=== PATIENT | female | born 1970 ===

== ENCOUNTER 2017-09-29 06:07 | Inpatient (IN) | payer OTHER, SELFPAY ==
[2017-09-26 09:51] VITALS: BMI 21.4
[2017-09-29] MEDS ORDERED: Propofol 10 mg/ml Inj (20 ML) ONE (07:15)
[2017-09-29] MEDS ORDERED: Succinylcholine 200 mg/10 ml Inj IV ONE (07:15)
[2017-09-29] MEDS ORDERED: Lidocaine 4% (Laryng-O-Jet) Kit MM ONE (07:15)
[2017-09-29] MEDS ORDERED: Rocuronium 10 mg/ml (5 ml) ONE (07:15)
[2017-09-29] MEDS ORDERED: Midazolam 2 MG/2 ML VIAL ONE (07:15)
[2017-09-29] MEDS ORDERED: ePHEDrine 50 mg/ml Inj ONE (07:15)
[2017-09-29] MEDS ORDERED: Lactated Ringer's 1,000 ML IV ONE ×2 (07:20→09:16)
[2017-09-29] MEDS ORDERED: ceFAZolin IV 1 gm in Dextrose 1 GM/50 ML BAG IVPB ONE (07:51)
--- NOTE | 2017-09-29 07:54 | CP.SDSHP ---
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 No Pain - Allergies Allergies: Allergies No Known Allergies Allergy (Verified 09/29/17 07:47) - Physical Exam General Appearance: well, non-toxic Vital Signs: Vital Signs 09/29/17 07:00 Temperature 97.2 F L Pulse Rate 71 Respiratory 18 Rate Blood Pressure 112/75 O2 Sat by Pulse 100 Oximetry Neuro: WNL Heart: WNL Lungs: WNL GI: WNL - {Optional Preform as Required} Breast: WNL Abdomen: WNL - Impression Impression: 47 y/o F w/ low-grade Right breast DCIS Pt. Evaluated Today:Candidate for Anesthesia & Procedure: Yes - Date & Time Date: 09/29/17 Time: 07:56 Short Stay Discharge - Short Stay Discharge Admitting Diagnosis/Reason for Visit: D05.11 Disposition: HOME/ ROUTINE Referrals: FAMILY PROVIDER,NO [Primary Care Provider] -
[2017-09-29] MEDS ORDERED: Dexamethasone 4 mg/1 ml ONE (08:15)
[2017-09-29 08:40] LABS: BASO % 1.1 % (0.0-2.0); EOS % 1.1 % (0.0-4.0); HEMATOCRIT 39.1 % (34.0-47.0); LYMPH % 26.5 % (20.0-40.0); MEAN CELL VOLUME 88.7 fl (81.0-99.0); MEAN CORPUSCULAR HEMOGLOBIN 29.5 pg (27.0-31.0); MEAN CORPUSCULAR HGB CONC 33.3 g/dL (33.0-37.0); MEAN PLATELET VOLUME 8.7 fl (7.2-11.7); MONO # 0.2 K/uL (0.0-0.8); MONO % 6.3 % (0.0-10.0); NEUT # 2.5 K/uL (1.8-7.0); NRBC % 0.3 % (0.0-0.0); RED CELL DISTRIBUTION WIDTH 15.2 % (11.5-14.5); WHITE BLOOD COUNT 3.9 K/uL (4.8-10.8)
[2017-09-29] MEDS ORDERED: HYDROmorphone 0.5 mg/0.5 ml ISec IVP PRN (09:35)
[2017-09-29] MEDS ORDERED: HYDROmorphone 0.5 mg/0.5 ml ISec ONE (09:40)
[2017-09-29] MEDS ORDERED: Lactated Ringer's 1,000 ML IV SCH (09:45)
--- NOTE | 2017-09-29 09:49 | PCM.SURG1 ---
<Stas Kauffman A - Last Filed: 09/29/17 09:47> Surgeon's Initial Post Op Note - Surgeon's Notes Surgeon: Dr Barbosa Income Tax Expert: Dr Kauffman PGY3, Dr Lacy PGY2 Type of Anesthesia: General Endo Pre-Operative Diagnosis: Ductal Carcinoma in Situ: Right breast Operative Findings: see report <Cristobal Barbosa - Last Filed: 09/30/17 15:12> Surgeon's Initial Post Op Note - Surgeon's Notes Post-Operative Diagnosis: Extensive DCIS R breast Operation Performed: Right simple mastectomy Specimen/Specimens Removed: Right breast. Suture marking lateral side Estimated Blood Loss: EBL {In ML}: 100 Blood Products Given: N/A Drains Used: Miguel A Post-Op Condition: Good Date of Surgery/Procedure: 09/29/17 Time of Surgery/Procedure: 09:00
[2017-09-29] MEDS ORDERED: Oxycodone/Acetaminophen 5/325 mg Tab PO PRN (10:33)
[2017-09-29] MEDS: Sodium Chloride 0.9% 1,000 ML IV SCH (14:20)
[2017-09-30] MEDS: Sodium Chloride 0.9% 1,000 ML IV SCH (01:50)
[2017-09-30 05:47] VITALS: O2SAT 99
[2017-09-30 06:45] LABS: HEMATOCRIT 23.9 % (34.0-47.0); MEAN CELL VOLUME 87.9 fl (81.0-99.0); MEAN CORPUSCULAR HEMOGLOBIN 29.5 pg (27.0-31.0); MEAN CORPUSCULAR HGB CONC 33.6 g/dL (33.0-37.0); RED CELL DISTRIBUTION WIDTH 15.6 % (11.5-14.5); WHITE BLOOD COUNT 5.2 K/uL (4.8-10.8)
[2017-09-30 08:59] VITALS: BP 90/53; PULSE 88; RESP 18; TEMP 99.3
--- NOTE | 2017-09-30 09:35 | CP.PCM.DIS ---
Provider - Provider Date of Admission: 09/29/17 10:29 Attending physician: Cristobal Barbosa MD Primary care physician: NO FAMILY PROVIDER Time Spent in preparation of Discharge (in minutes): 25 Diagnosis - Discharge Diagnosis (1) Ductal carcinoma in situ (DCIS) of right breast Status: Acute (2) S/P mastectomy Status: Acute Hospital Course - Lab Results Lab Results: Most Recent Lab Values WBC 5.2 K/uL (4.8-10.8) 09/30/17 05:30 RBC 2.71 Mil/uL (3.80-5.20) L 09/30/17 05:30 Hgb 8.0 g/dL (12.0-16.0) L D 09/30/17 05:30 Hct 23.9 % (34.0-47.0) L 09/30/17 05:30 MCV 87.9 fl (81.0-99.0) 09/30/17 05:30 MCH 29.5 pg (27.0-31.0) 09/30/17 05:30 MCHC 33.6 g/dL (33.0-37.0) 09/30/17 05:30 RDW 15.6 % (11.5-14.5) H 09/30/17 05:30 Plt Count 152 K/uL (130-400) 09/30/17 05:30 MPV 8.7 fl (7.2-11.7) 09/29/17 08:00 Neut % (Auto) 65.0 % (50.0-75.0) 09/29/17 08:00 Lymph % (Auto) 26.5 % (20.0-40.0) 09/29/17 08:00 Gem % (Auto) 6.3 % (0.0-10.0) 09/29/17 08:00 Eos % (Auto) 1.1 % (0.0-4.0) 09/29/17 08:00 Baso % (Auto) 1.1 % (0.0-2.0) 09/29/17 08:00 Neut # 2.5 K/uL (1.8-7.0) 09/29/17 08:00 Lymph # 1.0 K/uL (1.0-4.3) 09/29/17 08:00 Gem # 0.2 K/uL (0.0-0.8) 09/29/17 08:00 Eos # 0.0 K/uL (0.0-0.7) 09/29/17 08:00 Baso # 0.0 K/uL (0.0-0.2) 09/29/17 08:00 - Hospital Course Hospital Course: 47 y/o F Dx w/ low-grade DCIS of Right breast presents to [facility] for elective right mastectomy. Drain was placed to monitor bleeding. Pt tolerated the procedure well w/ no complications. Pt was kept overnight for observation and pain control. Pt had This AM, pt tolerating regular diet. pain well controlled w / PO medications. Drain had ~120cc output since placement. Pt denies F/C, N/V, D /C. no numbness/tingling in arm. Pt is cleared for discharge to home with instructions to follow up in clinic on for drain removal. Discharge Exam - Head Exam Head Exam: NORMAL INSPECTION - Eye Exam Eye Exam: Normal appearance - ENT Exam ENT Exam: Mucous Membranes Moist - Respiratory Exam Respiratory Exam: NORMAL BREATHING PATTERN. absent: Accessory Muscle Use, Respiratory Distress Additional comments: minor staining on bandages no ecchymosis appreciated. drain w/ serosanguinous output - Cardiovascular Exam Cardiovascular Exam: absent: Bradycardia, Tachycardia - GI/Abdominal Exam GI & Abdominal Exam: Soft. absent: Distended, Tenderness - Extremities Exam Extremities exam: normal inspection - Neurological Exam Neurological exam: Alert, Oriented x3 - Psychiatric Exam Psychiatric exam: Normal Affect, Normal Mood - Skin Skin Exam: Dry, Normal Color, Warm Discharge Plan - Discharge Medications Prescriptions: oxyCODONE/Acetaminophen [Percocet 5/325 mg Tab] 1 tab PO Q4 PRN #10 tab PRN Reason: Pain, Moderate (4-7) - Follow Up Plan Condition: GOOD Disposition: HOME/ ROUTINE Instructions: How to Use an Incentive Spirometer (DC), Mastectomy (DC), Surgical Site Infections (DC) Additional Instructions: See Dr. Barbosa in clinic on empty drain as needed take medication as prescribed pt may take over the counter pain medication Referrals: FAMILY PROVIDER,NO [Primary Care Provider] - Cristobal Barbosa MD [Staff Provider] -
--- NOTE | 2017-10-01 08:40 | OP ---
PROCEDURE DATE: 09/29/2017 SURGEON: Cristobal Barbosa MD. ASSISTANTS: Dr. Kauffman and Dr. Lacy. TYPE OF ANESTHESIA: General. ANESTHESIA ADMINISTERED BY: Jodie Sol MD. PREOPERATIVE DIAGNOSIS: Extensive ductal carcinoma in situ, right breast. POSTOPERATIVE DIAGNOSIS: Extensive ductal carcinoma in situ, right breast. PROCEDURE: Right simple mastectomy. DESCRIPTION OF OPERATION: With the patient in the supine position under adequate general anesthesia, the right chest and upper arm were prepped and draped in usual sterile manner. An elliptical incision was marked encompassing the nipple areolar complex of the right breast and the upper skin incision was made, taken down through the full thickness of skin. Skin flap was raised superiorly up to the chest wall at approximately the level of the third rib, which was the limit of breast tissue and this was done using a combination of sharp dissection and cautery. Similarly, the lower incision was made and again, the skin flap raised down to the chest wall beyond the limit of the breast tissue. The patient was relatively thin and there was minimal subcutaneous fat and the breast tissue was dissected off the skin using a combination of sharp dissection and cautery. The breast tissue was then dissected off the underlying chest wall using primarily cautery, beginning at the lower outer aspect over the serratus musculature and then continuing on to the pectoralis fascia. There did not appear to be any adherence of the breast tissue to the chest wall and no gross tumor mass was identified. The breast tissue with the overlying ellipse of skin was then marked with a single suture on the lateral end of the skin ellipse and sent for pathologic examination. The operative site was examined for hemostasis. Small bleeders were cauterized or suture ligated with 3-0 Vicryl and closure was performed with 3-0 Vicryl interrupted sutures for the subcutaneous tissue and then 4-0 Monocryl subcuticular sutures for closure, followed by Steri-Strips. The operative area was irrigated with sterile water and a 19 Miguel A drain placed prior to closure and brought out through the lower skin flap. The dry sterile dressing with fluffy compression was applied. The patient tolerated the procedure well and transferred to recovery room in stable condition. Estimated blood loss for the procedure 100 mL. Cristobal Barbosa MD
== END 2017-09-30 13:00 | disposition home or self-care (01) | DRG 258 ==
LOC: H.OPSURG 06:07 → H.MEDSURG1 10:29 → H.PEDS 15:16
PROVIDERS: ADMIT Specialist; ATTEND Specialist
PROC: 0HTT0ZZ Resection of Right Breast, Open Approach (ICD-10-PCS; principal; 2017-09-29 07:45)
DX: D05.11 Intraductal carcinoma in situ of right breast (principal)

== ENCOUNTER 2017-10-08 13:34 | Emergency (ER) | payer SELFPAY ==
[2017-10-08 13:34] VITALS: BMI 21.4
[2017-10-08 13:41] VITALS: BP 119/42; PULSE 77; RESP 18; TEMP 97.6; O2SAT 99
--- NOTE | 2017-10-08 15:25 | RAD ---
PROCEDURE: CHEST RADIOGRAPH, 1 VIEW HISTORY: s/p needle drainage of mastectomy hematoma COMPARISON: None available. FINDINGS: LUNGS: Clear. PLEURA: No pneumothorax or pleural fluid seen. CARDIOVASCULAR: Normal. OSSEOUS STRUCTURES: No significant abnormalities. VISUALIZED UPPER ABDOMEN: Normal. OTHER FINDINGS: The asymmetry in the breast shadows is consistent with right mastectomy status. The lateral right hemithoracic soft tissue changes are consistent with this postop status. -with or without mastectomy hematoma as history so states IMPRESSION: Postop changes. No cardiopulmonary pathology noted
--- NOTE | 2017-10-08 16:11 | ED PDOC ---
HPI: Wound Care - HPI Time Seen by Provider: 10/08/17 13:44 Chief Complaint (Nursing): Breast Problem Chief Complaint (Provider): Wound Check History Per: Patient Exam Limitations: no limitations Onset/Duration Of Symptoms: Days (x8days) Current Symptoms Are (Timing): Still Present Additional Complaint(s): 47 y/o female presents to the ED complaining of bleeding from the wound status post right mastectomy (surgery was performed by Dr. Barbosa last week). Denies cough, fever, redness or wound drainage. PMD: Cristobal Barbosa MD Past Medical History Reviewed: Historical Data, Nursing Documentation, Vital Signs Vital Signs: Last Vital Signs Temp 97.6 F 10/08/17 13:37 Pulse 77 10/08/17 13:37 Resp 18 10/08/17 13:37 BP 119/42 L 10/08/17 13:37 Pulse Ox 99 10/08/17 13:37 - Medical History PMH: Denies: Chronic Kidney Disease - Surgical History Other surgeries: Masectomy - Family History Family History: States: Unknown Family Hx - Social History Current smoker - smoking cessation education provided: No Alcohol: None Drugs: Denies - Home Medications Home Medications: Ambulatory Orders Medication Instructions Recorded Multivitamin [Multiple Vitamins] 1 tab PO DAILY 09/26/17 oxyCODONE/Acetaminophen [Percocet 1 tab PO Q4 PRN #10 tab 09/30/17 5/325 mg Tab] Cephalexin [cephalexin] 500 mg PO BID #14 cap 10/08/17 - Allergies Allergies/Adverse Reactions: Allergies Allergy/AdvReac Type Severity Reaction Status Date / Time No Known Allergies Allergy Verified 10/08/17 13:36 Review of Systems ROS Statement: Except As Marked, All Systems Reviewed And Found Negative (As per HPI, otherwise negative) Constitutional: Negative for: Fever Respiratory: Negative for: Cough Skin: Positive for: Other (Bleeding from the surgical site but no redness or wound drainage) Physical Exam - Reviewed Nursing Documentation Reviewed: Yes Vital Signs Reviewed: Yes - Physical Exam Appears: Positive for: Non-toxic, No Acute Distress Head Exam: Positive for: ATRAUMATIC, NORMAL INSPECTION, NORMOCEPHALIC Skin: Positive for: Rash (right breast status post masectomy wound is clean and intact with minor erythema and small bloody discharge from central wound) Cardiovascular/Chest: Positive for: Regular Rate, Rhythm. Negative for: Murmur , Tachycardia Respiratory: Negative for: Accessory Muscle Use, Respiratory Distress Neurologic/Psych: Positive for: Alert, Oriented (x3) - ECG O2 Sat by Pulse Oximetry: 99 (RA) Pulse Ox Interpretation: Normal Medical Decision Making Medical Decision Making: Time: 14:46 Plan: Chest x-ray Time: 15:23 FINDINGS: Chest x-ray LUNGS: Clear. PLEURA: No pneumothorax or pleural fluid seen. CARDIOVASCULAR: Normal. OSSEOUS STRUCTURES: No significant abnormalities. VISUALIZED UPPER ABDOMEN: Normal. OTHER FINDINGS: The asymmetry in the breast shadows is consistent with right mastectomy status. The lateral right hemithoracic soft tissue changes are consistent with this postop status. -with or without mastectomy hematoma as history so states IMPRESSION: Postop changes. No cardiopulmonary pathology noted Time: 15:45 Cephalexin 500 mg PO Reevaluation Time: 15:50 Upon provider reevaluation patient is feeling better, and requires no further treatment in the ED at this time. Patient will be discharged home with Rx for Cephalexin 500 mg PO . Counseling was provided and all questions were answered regarding diagnosis and need for follow up with PMD. There is agreement to discharge plan. Return if symptoms persist or worsen. Clinical Impression: postoperative wound hematoma Scribe Attestation: Documented by Miroslava Cruz acting as a scribe for Jose Elias Taylor MD. [employer] Attestation: All medical record entries made by the Scribe were at my direction and personally dictated by me. I have reviewed the chart and agree that the record accurately reflects my personal performance of the history, physical exam, medical decision making, and the department course for this patient. I have also personally directed, reviewed, and agree with the discharge instructions and disposition. Disposition - Clinical Impression Clinical Impression: Postoperative wound hematoma - Patient ED Disposition Is Patient to be Admitted: No Counseled Patient/Family Regarding: Studies Performed, Diagnosis, Rx Given - Disposition Referrals: Cristobal Barbosa MD [Staff Provider] - Disposition: Routine/Home Disposition Time: 15:50 Condition: STABLE Additional Instructions: Followup with breast surgeon next week. Return to ER for any worse or new symptoms. Take antibiotic as directed. Prescriptions: Cephalexin [cephalexin] 500 mg PO BID #14 cap Instructions: Acute Wound Care (ED), Hematoma (ED) Forms: [employer] (Peruvian) Print Language: ICELANDIC
== END 2017-10-08 16:37 | disposition home or self-care (01) ==
LOC: H.ER 13:34
DX: T81.89XA Other complications of procedures, not elsewhere classified, initial encounter (principal)

== ENCOUNTER 2017-10-11 11:04 | Emergency (ER) | payer SELFPAY ==
[2017-10-11 11:04] VITALS: BMI 21.4
[2017-10-11 11:15] VITALS: O2SAT 99
[2017-10-11] MEDS ORDERED: Sodium Chloride 0.9% 500 ML IV STA (11:30)
--- NOTE | 2017-10-11 11:47 | ED PDOC ---
HPI: Skin/Bite Injury Time Seen by Provider: 10/11/17 11:21 Chief Complaint (Nursing): Fever Chief Complaint (Provider): Bleeding s/p mastectomy History Per: Patient History/Exam Limitations: no limitations Onset/Duration Of Symptoms: Days (x13) Current Symptoms Are (Timing): Still Present Additional Complaint(s): Sana Gonzalez is a 47 year old female with a past surgical history of a mastectomy completed on September 29, 2017 presenting to the ED for an evaluation of bleeding s/p mastectomy. The patient reports bleeding since the mastectomy and was evaluated on October 08, 2017 in the ER. The patient was discharged with Keflex. She reports minimal pain. Contrary to triage, patient denies fever. PMD: Provider TBGena Past Medical History Reviewed: Historical Data, Nursing Documentation, Vital Signs Vital Signs: Last Vital Signs Temp 100.0 F H 10/11/17 16:26 Pulse 90 10/11/17 16:26 Resp 18 10/11/17 16:26 BP 110/60 10/11/17 16:26 Pulse Ox 99 10/11/17 16:26 - Medical History PMH: Denies: Chronic Kidney Disease - Surgical History Other surgeries: mastectomy - Family History Family History: States: Unknown Family Hx - Home Medications Home Medications: Ambulatory Orders Medication Instructions Recorded Multivitamin [Multiple Vitamins] 1 tab PO DAILY 09/26/17 oxyCODONE/Acetaminophen [Percocet 1 tab PO Q4 PRN #10 tab 09/30/17 5/325 mg Tab] Cephalexin [cephalexin] 500 mg PO BID #14 cap 10/08/17 Acetaminophen with Codeine 1 tab PO Q6H PRN #10 tab 10/11/17 [Tylenol with Codeine No. 3 300 mg-30 mg] Sulfamethoxazole/Trimethoprim 1 tab PO BID #20 tab 10/11/17 [Bactrim DS 800 mg-160 mg] - Allergies Allergies/Adverse Reactions: Allergies Allergy/AdvReac Type Severity Reaction Status Date / Time No Known Allergies Allergy Verified 10/08/17 13:36 Review of Systems ROS Statement: Except As Marked, All Systems Reviewed And Found Negative Constitutional: Negative for: Fever Cardiovascular: Positive for: Other (minimal pain to site of mastectomy) Physical Exam - Reviewed Nursing Documentation Reviewed: Yes Vital Signs Reviewed: Yes - Physical Exam Appears: Positive for: Non-toxic, No Acute Distress Head Exam: Positive for: ATRAUMATIC, NORMOCEPHALIC Skin: Positive for: Normal Color, Warm, Dry Eye Exam: Positive for: Normal appearance, EOMI Neck: Positive for: Normal, Painless ROM Cardiovascular/Chest: Positive for: Other (right breast: mastectomy incision; oozing dark blood present in the middle of incision; incision is clean, dry, & intact bilaterally). Negative for: Edema (or erythema or induration ) Respiratory: Positive for: Normal Breath Sounds. Negative for: Respiratory Distress Extremity: Positive for: Normal ROM. Negative for: Deformity Neurologic/Psych: Positive for: Alert, Oriented (x3). Negative for: Motor/ Sensory Deficits - Laboratory Results Result Diagrams: 10/11/17 11:50 10/11/17 11:50 - ECG O2 Sat by Pulse Oximetry: 99 (RA) Pulse Ox Interpretation: Normal Medical Decision Making Medical Decision Making: Time: 11:21 Impression: Post Op bleeding Plan: * ABO/RH Type * Type and Screen * CMP * CBC (with differential) * PTT * Prothrombin Time * NS 0.9% 500 ml IV 500 mls/hr * Reevaluation 15:40 Patient was evaluated by nursing surgical services director in ED, recommends changing antibiotic to Bactrim. The patient has a follow up arranged for . Scribe Attestation: Documented by Amanda Gilmore, acting as a scribe for Lakeisha Velasquez MD. Provider Scribe Attestation: All medical record entries made by the Scribe were at my direction and personally dictated by me. I have reviewed the chart and agree that the record accurately reflects my personal performance of the history, physical exam, medical decision making, and the department course for this patient. I have also personally directed, reviewed, and agree with the discharge instructions and disposition. Disposition - Clinical Impression Clinical Impression: Postoperative bleeding from incision - Disposition Referrals: Provider MICHELL, [Primary Care Provider] - Disposition: Routine/Home Disposition Time: 15:54 Condition: STABLE Prescriptions: Acetaminophen with Codeine [Tylenol with Codeine No. 3 300 mg-30 mg] 1 tab PO Q6H PRN #10 tab PRN Reason: Pain, Severe (8-10) Sulfamethoxazole/Trimethoprim [Bactrim DS 800 mg-160 mg] 1 tab PO BID #20 tab Instructions: Postoperative Bleeding (ED) Forms: [employer] (Comoran) Print Language: CROATIAN
[2017-10-11 11:58] LABS: BASO % 0.2 % (0.0-2.0); EOS % 0.4 % (0.0-4.0); HEMATOCRIT 27.4 % (34.0-47.0); LYMPH # 0.3 K/uL (1.0-4.3); LYMPH % 2.1 % (20.0-40.0); MEAN CELL VOLUME 87.8 fl (81.0-99.0); MEAN CORPUSCULAR HEMOGLOBIN 29.9 pg (27.0-31.0); MEAN CORPUSCULAR HGB CONC 34.1 g/dL (33.0-37.0); MEAN PLATELET VOLUME 8.2 fl (7.2-11.7); MONO # 0.2 K/uL (0.0-0.8); MONO % 1.9 % (0.0-10.0); NEUT # 11.5 K/uL (1.8-7.0); NEUT % 95.4 % (50.0-75.0); PLATELET COUNT 275 K/uL (130-400); RED CELL DISTRIBUTION WIDTH 15.8 % (11.5-14.5); WHITE BLOOD COUNT 12.1 K/uL (4.8-10.8)
[2017-10-11 12:15] LABS: ALB/GLOB RATIO 1.2 (1.0-2.1); ALKALINE PHOSPHATASE 90 U/L (38-126); ALT/SGPT 71 U/L (9-52); AST/SGOT 41 U/L (14-36); BILIRUBIN,TOTAL 1.8 mg/dl (0.2-1.3); BLOOD UREA NITROGEN 10 mg/dl (7-17); CALCIUM 8.6 mg/dL (8.4-10.2); CARBON DIOXIDE 23 mmol/L (22-30); CHLORIDE 101 mmol/L (98-107); GFR AFRICAN-AMERICAN > 60; GLUCOSE,RANDOM 146 mg/dL (65-105); POTASSIUM 3.4 MMOL/L (3.6-5.0); SODIUM 134 mmol/l (132-148); TOTAL PROTEIN 7.2 G/DL (6.3-8.2)
[2017-10-11 12:33] LABS: PARTIAL THROMBOPLASTIN TIME 33.3 Seconds (25.6-37.1)
[2017-10-11 13:03] LABS: NEUTROPHIL 95 % (42-75); TOTAL CELLS COUNTED 100
[2017-10-11 13:18] VITALS: RESP 18
[2017-10-11] MEDS ORDERED: ceFAZolin IV 1 gm in Dextrose 1 GM/50 ML BAG IVPB STA (14:18)
[2017-10-11] MEDS ORDERED: ceFAZolin IV 1 gm in Dextrose 1 GM/50 ML BAG IVPB ONE (14:36)
[2017-10-11 16:27] VITALS: BP 110/60; PULSE 90; TEMP 100
== END 2017-10-11 17:00 | disposition home or self-care (01) ==
LOC: H.ER 11:04 → SUPCPDRO 11:04 → H.ER 17:00
DX: L76.22 Postprocedural hemorrhage of skin and subcutaneous tissue following other procedure (principal); Z98.890 Other specified postprocedural states; Z90.11 Acquired absence of right breast and nipple
CPT/HCPCS: 80053; 85025; 85610; 85730; 96360; 99285; J0690; J7040